=== PATIENT | male | born 1955 | race Caucasian/White ===

== ENCOUNTER 2024-02-10 09:14 | Day surgery (SDC) | payer MEDICARE, OTHER ==
--- NOTE | 2024-02-10 00:07 | HP ---
HISTORY AND PHYSICAL HISTORY OF PRESENT ILLNESS: A 68-year-old gentleman. No prior colonoscopy. No bloody stools. No change in bowel habits. No new pain. Family history negative for colon cancer. Needs screening colonoscopy. PAST MEDICAL HISTORY: Type 2 diabetes, hyperlipidemia. HOME MEDICATIONS: Gemfibrozil, Ozempic, and simvastatin. ALLERGIES: No known drug allergies. PAST SURGICAL HISTORY: Denied prior surgery or endoscopy in the past. SOCIAL HISTORY: No smoking or alcohol abuse. FAMILY HISTORY: Liver cancer, heart disease. Negative for colon cancer. REVIEW OF SYSTEMS: Twelve systems reviewed. No chest pain or palpitations. Other systems negative or noncontributory as above and per preadmission questionnaire. PHYSICAL EXAMINATION: GENERAL: Height 6 feet 2 inches. BMI 29.5. HEENT: Sclerae nonicteric. Extraocular movements intact. NECK: No JVD. CHEST: Clear to auscultation. CARDIOVASCULAR: Regular rate and rhythm. ABDOMEN: Soft. EXTREMITIES: No clubbing, cyanosis, or edema. NEUROLOGIC: Alert and oriented, moving extremities symmetrically. PSYCHIATRIC: Appropriate mood and affect. SKIN: Dry. RECTAL: Deferred until diagnostic exam. IMPRESSION: A 68-year-old needs screening colonoscopy. Feel he is a candidate. Risks explained in detail including bleeding, infection, risk of bowel injury or perforation possibly requiring open possible, risk of misdiagnosis or nondiagnosis, incomplete exam possibly requiring barium enema or other studies or procedures, risk of anesthesia or sedation, risk of bowel prep but not limited to. He understands and agreeable with planned procedure. Will proceed with outpatient screening colonoscopy under MAC anesthesia.
[2024-02-10] MEDS: Lactated Ringers 1,000 ML IV SCH (09:28)
[2024-02-10] MEDS ORDERED: DIPRIVAN 200 MG/20 ML IV ONE ×2 (11:34→11:38)
[2024-02-10 12:22] VITALS: RESP 16; O2SAT 94
[2024-02-10 12:29] VITALS: TEMP 97.2
[2024-02-10 12:32] VITALS: BP 128/78; PULSE 80
--- NOTE | 2024-02-12 00:53 | OP ---
SURGERY DATE/TIME: 02/10/2024 [id number] PREOPERATIVE DIAGNOSIS: Need for screening colonoscopy. POSTOPERATIVE DIAGNOSES: 1) ASA class 2. 2) Good bowel prep. 3) Mild diverticulosis left colon. 4) Small early polyps versus hyperplastic lesions in transverse colon and sigmoid colon. PROCEDURE: Colonoscopy to cecum, hot biopsy polypectomy transverse colon polyp x2 and sigmoid colon polyp x2. SURGEON: Jam Patino MD ANESTHESIA: MAC. ESTIMATED BLOOD LOSS: Minimal. WITHDRAWAL TIME: Approximately 9 minutes. INDICATIONS: As above. Consent was obtained. DESCRIPTION OF PROCEDURE AND FINDINGS: The patient was taken to the endoscopy room. MAC anesthesia induced after official time-out for planned procedure. Digital rectal exam did not reveal any rectal masses. Videocolonoscope inserted and passed up through slightly tortuous sigmoid, descending, transverse, and ascending colon. With external pressure, scope was passed around to the cecum. Appendiceal orifice and valve were visualized, photo documented, with palpation right lower quadrant to confirm location. Scope was then carefully withdrawn over the next 9 minutes, stopping in the transverse colon and removed 2 small early polyps versus hyperplastic lesions and then another couple in the sigmoid colon. There were no signs of any large polyps, masses, or obstructing lesions. He did have some small diverticula in the left colon. Prep overall was good. Withdrawal time was about 9 minutes. The patient tolerated the procedure well. There were no immediate complications. There was no family to discuss findings with. I will see him back in the office next week.
== END 2024-02-10 13:00 | disposition home or self-care (01) ==
LOC: SDC 09:14
PROVIDERS: ATTEND Surgery
DX: Z12.11 Encounter for screening for malignant neoplasm of colon (principal); E11.9 Type 2 diabetes mellitus without complications; K57.30 Diverticulosis of large intestine without perforation or abscess without bleeding; K63.5 Polyp of colon
CPT/HCPCS: 82947; 93005; J2704